=== PATIENT | female | born 1980 | race African-American/Black ===

== ENCOUNTER 2019-03-05 19:58 | Emergency (ER) | payer OTHER ==
--- NOTE | 2019-03-05 20:03 | PDOC ---
Rapid Medical Evaluation Time Seen by Provider: 03/05/19 20:00 Medical Evaluation: Allergies Allergy/AdvReac Type Severity Reaction Status Date / Time No Known Allergies Allergy Verified 03/19/18 14:49 03/05/19 20:00 I have performed a brief in-person evaluation of this patient. The patient presents with a chief complaint of: b/l conjunctival erythema w/ am crusting x 5 days. No contact lens use. No sick contacts Pertinent physical exam findings: stable w/ b/l conjunctival erythema I have ordered the following:nothing The patient will proceed to the ED for further evaluation. Discharge Disposition - Diagnosis Conjunctivitis Qualifiers: Conjunctivitis type: acute Acute conjunctivitis type: unspecified Laterality: bilateral Qualified Code(s): H10.33 - Unspecified acute conjunctivitis, bilateral - Referrals - Patient Instructions - Post Discharge Activity
[2019-03-05 20:09] VITALS: BP 143/91; PULSE 79; TEMP 98.2; BMI 27.2
[2019-03-05] MEDS ORDERED: diazePAM 5 MG TABLET PO ONE (20:29)
--- NOTE | 2019-03-05 20:34 | PDOC ---
History of Present Illness - General Chief Complaint: Eye Problem Stated Complaint: PINK EYE Time Seen by Provider: 03/05/19 20:00 - History of Present Illness Initial Comments: 03/05/19 20:34 39-year-old female with a past medical history of bipolar and anxiety presents for evaluation of anxiety and bilateral eye irritation 5 days without systemic symptoms or drainage Past History - Past Medical History Allergies/Adverse Reactions: Allergies Allergy/AdvReac Type Severity Reaction Status Date / Time No Known Allergies Allergy Verified 03/19/18 14:49 Home Medications: Ambulatory Orders Amoxicillin - [Amoxicillin 500mg Capsule -] 500 mg PO TID 7 Days #21 capsule 05/26 Oxycodone HCl/Acetaminophen [Percocet 5-325 mg Tablet] 1 tab PO Q6H PRN #4 tablet MDD 4 03/19/18 Olopatadine HCl [Pataday] 1 drop OU DAILY #1 bottle 03/05/19 COPD: No - Suicide/Smoking/Psychosocial Hx Smoking History: Never smoked Review of Systems - Review of Systems Constitutional: No: Fever HEENTM: Yes: Tearing Psychiatric: Yes: Anxiety *Physical Exam - Vital Signs Last Vital Signs Temp Pulse Resp BP Pulse Ox 98.2 F 79 18 143/91 98 03/05/19 20:06 03/05/19 20:06 03/05/19 20:06 03/05/19 20:06 03/05/19 20:06 - Physical Exam Comments: 03/05/19 20:33 HEAD: NC/AT EYES: Conjuntiva amily without discharge MS: Full ROM in all joints without edema NEUROLOGIC: No gross sensory or motor deficits, NVID SKIN: Normal color and temperature no lesions or rashes Medical Decision Making - Medical Decision Making 03/05/19 20:32 We'll treat for ALLERGIC conjunctivitis *DC/Admit/Observation/Transfer Diagnosis at time of Disposition: Anxiety Conjunctivitis Qualifiers: Conjunctivitis type: acute Acute conjunctivitis type: unspecified Laterality: bilateral Qualified Code(s): H10.33 - Unspecified acute conjunctivitis, bilateral - Discharge Dispostion Disposition: HOME Condition at time of disposition: Stable Decision to Admit order: No - Prescriptions Prescriptions: Olopatadine HCl [Pataday] 1 drop OU DAILY #1 bottle - Referrals Referrals: Cassandra Guerrero MD [Staff Physician] - - Patient Instructions Additional Instructions: Return to the emergency room for worsening symptoms. Please follow-up with your psychiatrist for further evaluation and treatment of your anxiety and internal medicine for further evaluation of your ALLERGIC conjunctivitis. Please use the eyedrops as directed one drop each eye once daily - Post Discharge Activity
[2019-03-05] MEDS ORDERED: diazePAM 5 MG TABLET ONE (20:51)
== END 2019-03-05 20:53 | disposition home or self-care (01) ==
LOC: JERFT 19:58
DX: F41.9 Anxiety disorder, unspecified (principal); F31.9 Bipolar disorder, unspecified
CPT/HCPCS: 99281-25